=== PATIENT | female | born 1975 | race Caucasian/White ===

== ENCOUNTER 2019-07-17 12:50 | Emergency (ER) | payer MEDICAID, MEDICARE ==
[2019-07-17] MEDS ORDERED: Famotidine IV* 10 MG/ML 2 ML (20 mg) IV SLOW PU ONE (12:53)
[2019-07-17] MEDS ORDERED: methylPREDNISolone 125 MG* 2 ML VIAL IV ONE (12:53)
[2019-07-17 12:58] VITALS: BP 121/72
--- NOTE | 2019-07-17 13:18 | UC ---
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 HAS KNOWN ANAPHYLAXIS TO BEE STINGS. IMMEDIATELY USED HER EPIPEN AND TOOK 50 MG OF BENADRYL. STATES HER TONGUE FELT A LITTLE THICK INITIALLY BUT THIS HAS SINCE COMPLETELY RESOLVED. SHE DENIES ANY RESPIRATORY DISTRESS OR SHORTNESS OF BREATH. FEELS A LITTLE BIT OF TIGHTNESS IN HER CHEST. PATIENT IS QUITE ANXIOUS ON ARRIVAL. - History of Current Complaint Stated Complaint: BEE STING Time Seen by Provider: 07/17/19 12:52 Hx Obtained From: Patient Onset/Duration: Sudden Onset, Lasting Minutes, Still Present Severity Initially: Moderate Severity Currently: Moderate Pain Intensity: 3 Pain Scale Used: 0-10 Numeric Aggravating Factor(s): Nothing Alleviating Factor(s): Antihistamines, Epinephrine Associated Signs And Symptoms: Negative: Chest Pain, Cough Wheezing, Difficulty Breathing, Throat Tightening - Allergies/Home Medications Allergies/Adverse Reactions: Allergies Allergy/AdvReac Type Severity Reaction Status Date / Time acetaminophen [From Vicodin] Allergy Altered Verified 07/17/19 13:19 Mental Status bee venom protein (honey bee) Allergy Airway Verified 07/17/19 13:19 Obstruction cefuroxime [From Ceftin] Allergy Rash Verified 07/17/19 13:19 clindamycin Allergy Nausea Verified 07/17/19 13:19 duloxetine [From Cymbalta] Allergy See Comment Verified 07/17/19 13:19 erythromycin base Allergy Rash Verified 07/17/19 13:19 fentanyl Allergy Rash Verified 07/17/19 13:19 fluoxetine [From Prozac] Allergy Rash Verified 07/17/19 13:19 hydrocodone [From Vicodin] Allergy Altered Verified 07/17/19 13:19 Mental Status iodine Allergy Anaphylatic Verified 07/17/19 13:19 Shock latex Allergy Hives Verified 07/17/19 13:19 levothyroxine sodium Allergy Rash Verified 07/17/19 13:19 [From Synthroid] magnesium Allergy Unknown Verified 07/17/19 13:19 Reaction Details Penicillins Allergy Anaphylatic Verified 07/17/19 13:19 Shock shellfish derived Allergy Anaphylatic Verified 07/17/19 13:19 Shock Tree Nuts Allergy Unknown Verified 07/17/19 13:19 Reaction Details bromocryptide Allergy Unknown Uncoded 07/17/19 13:19 Reaction Details Home Medications: Home Medications Ascorbic Acid [Vitamin C] 500 mg PO DAILY 07/17/19 [History Confirmed 07/17/19] Cholecalciferol (Vitamin D3) [Vitamin D3] 5,000 unit PO DAILY 07/17/19 [History Confirmed 07/17/19] Citalopram TAB* [Celexa TAB*] 40 mg PO DAILY 07/17/19 [History Confirmed ] Cyclobenzaprine TAB* [Flexeril 10 MG TAB*] 10 mg PO DAILY 07/17/19 [History Confirmed 07/17/19] Lactobacillus Acidophilus [Acidophilus] 100 mg PO DAILY 07/17/19 [History Confirmed 07/17/19] Levocetirizine Dihydrochloride [Xyzal] 5 mg PO BEDTIME 07/17/19 [History Confirmed 07/17/19] Loratadine 10 mg PO DAILY 07/17/19 [History Confirmed 07/17/19] Omeprazole 20 mg PO DAILY 07/17/19 [History Confirmed 07/17/19] Pregabalin [Lyrica] 100 mg PO TID 07/17/19 [History Confirmed 07/17/19] Pyridoxine HCl (Vitamin B6) [Vitamin B-6] 100 mg PO DAILY 07/17/19 [History Confirmed 07/17/19] Thyroid,Pork [[place] Thyroid] 60 mg PO DAILY 07/17/19 [History Confirmed ] Ubidecarenone [Co Q-10] 200 mg PO DAILY 07/17/19 [History Confirmed 07/17/19] Vitamin B Complex CAP* [B Complex CAP*] 1 cap PO DAILY 07/17/19 [History Confirmed 07/17/19] Vitamin E Acetate [Vitamin E] 400 unit PO DAILY 07/17/19 [History Confirmed ] PMH/Surg Hx/FS Hx/Imm Hx Endocrine History: Hypothyroidism Respiratory History: Asthma - Surgical History Surgical History: Yes Surgery Procedure, Year, and Place: TOSILLECTOMY 1998 [facility] [place]. HYSTERECTOMY 1999 [facility] [place]. LAPARSOCOPY 1993 [facility] [place]. SEPTOPLASTY 2014 [facility]. LEFT BREAST DUCT EXC 2008 [facility]. C4/5, C5/6 ACDF 2006 [facility]. FINGER LT HAND TENDON REPAIR 2001 [facility] - Family History Known Family History: Positive: None - Social History Alcohol Use: Rare Substance Use Type: None Smoking Status (MU): Never Smoked Tobacco Review of Systems All Other Systems Reviewed And Are Negative: Yes Constitutional: Positive: Negative Skin: Positive: Other - BEE STING LEFT KNEE Respiratory: Positive: Negative Cardiovascular: Positive: Other - CHEST TIGHTNESS Gastrointestinal: Positive: Negative Psychological: Positive: Anxious Physical Exam Triage Information Reviewed: Yes Appearance: Well-Appearing, No Pain Distress, Well-Nourished Vital Signs: Initial Vital Signs Temp 98.9 F 07/17/19 12:55 Pulse 104 07/17/19 12:55 Resp 20 07/17/19 12:55 BP 121/72 07/17/19 12:55 Pulse Ox 98 07/17/19 12:55 Vital Signs Reviewed: Yes Eyes: Positive: Conjunctiva Clear ENT: Positive: Hearing grossly normal, Pharynx normal Neck: Positive: Supple Respiratory Exam: Normal Cardiovascular: Positive: Tachycardia Abdomen Description: Positive: Soft Musculoskeletal: Positive: No Edema Neurological: Positive: Alert Psychological: Positive: Age Appropriate Behavior Skin: Positive: Other - 3CMM AREA OF ERYTHEMA LEFT ANTERIOR KNEE AT BEE STING SITE. Negative: Rashes Re-Evaluation - Re-Evaluation First Eval Re-Evaluation Time: 14:15 - FEELS IMPROVED. READY FOR D/C Change: Improved Allergic Reaction Course/Dx - Course Course Of Treatment: PATIENT USED HER EPIPEN AND TOOK 50 MG OF BENADRYL PRIOR TO ARRIVAL. RECEIVED 125 MG SOLU-MEDROL AND 40 MG PEPCID HERE IN THE UC. SYMPTOMS WERE MONITORED FOR OVER AN HOUR. PATIENT FELT WELL AND READY FOR DISCHARGE AT THIS TIME. WE WILL REFILL HER EPIPEN AND CONTINUE PREDNISONE FOR 4 MORE DAYS. ADVISED TO CONTINUE ANTIHISTAMINES FOR THE NEXT FEW DAYS WELL. GO TO THE ER WITHOUT FAIL IF SYMPTOMS RECUR. - Differential Dx/Diagnosis Provider Diagnosis: Allergic reaction to bee sting Discharge ED - Sign-Out/Discharge Documenting (check all that apply): Patient Departure All imaging exams completed and their final reports reviewed: No Studies - Discharge Plan Condition: Stable Disposition: HOME Prescriptions: EPINEPHrine [Epipen 2-Benja] 0.3 mg IM ONCE PRN #1 benja PRN Reason: Allergy Symptoms predniSONE TAB* [Deltasone TAB*] 50 mg PO DAILY #4 tab Patient Education Materials: Insect Bite or Sting (ED), General Allergic Reaction (ED) Referrals: Raciel Bartholomew MD [Primary Care Provider] - If Needed Additional Instructions: YOU FELT IMPROVED AFTER 125 MG SOLU-MEDROL AND 40 MG OF PEPCID. TAKE PREDNISONE DAILY PRESCRIBED AVOID HEAT AND HOT WATER TAKE OTC ANTIHISTAMINE DAILY (CLARITIN (LORATADINE), ZYRTEC (CETIRIZINE) OR JENNIFER (FEXOFENADINE) IN THE MORNING, 25-50MG BENADRYL AT NIGHT) DO NOT SCRATCH KEEP COOL, CLEAN AND DRY USE TOPICAL STEROID SPARINGLY 2-3 TIMES DAILY NEEDED ON STING SITE. KEEP AWAY FROM MUCOUS MEMBRANES. GO TO THE ED WITHOUT FAIL IF YOU DEVELOP ANY RESPIRATORY INVOLVEMENT, TONGUE/ LIP SWELLING, FEVER, NAUSEA/VOMITING OR ANY OTHER CONCERNING SYMPTOMS. - Billing Disposition and Condition Condition: STABLE Disposition: Home
== END 2019-07-17 14:28 | disposition home or self-care (01) ==
LOC: UCEAST 12:50
DX: T63.441A Toxic effect of venom of bees, accidental (unintentional), initial encounter (principal); Y92.9 Unspecified place or not applicable; E03.9 Hypothyroidism, unspecified; J45.909 Unspecified asthma, uncomplicated; Z91.040 Latex allergy status; Z88.0 Allergy status to penicillin
CPT/HCPCS: 96361; 96372; 96374; 96375; 99202; 99283; G0463; J1200; J2930

== ENCOUNTER 2019-07-17 20:22 | Emergency (ER) | payer MEDICARE ==
--- OUTSIDE RECORDS SUMMARY | 2019-07-17 20:40 | XMS REPORT | Summary of Care ---
:[address] [facility] Address [address] [facility] [place] [address] Care Team Providers Name Role Phone Vin Leiva MD Primary Care Provider Reason for Visit Reason Comments Establish Care pt presents for re establishing care. Recently moved back to [facility]. Flu Vaccine pt would like to have influenza vaccine. Encounter Details Date Type Department Care Team Description 06/21/2019 Office Visit [facility] Raciel Bartholomew MD Hypothyroidism, unspecified type (Primary Dx); Practice [address] Syrinx of spinal cord (HCC); [address] [place] [address] Flu vaccine need; [place] [address] Depression with anxiety; [phone] Nummular eczema; Chronic urticaria Allergies Active Allergy Reactions Severity Noted Date Comments Bee Sting Anaphylaxis High 12/14/2007 Bromocriptine Rash 05/08/2008 Cefuroxime Anaphylaxis High 12/14/2007 Cleocin Anaphylaxis High 12/14/2007 Clindamycin Anaphylaxis 12/14/2007 Duloxetine Hcl Other 03/23/2015 Suicide ideation Erythromycin GI Reaction 12/17/2007 Fentanyl Citrate Hives 06/22/2011 FACIAL SWELLING 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/2010 Dizzy, vomiting diplopia and headache Gnp Iodine Anaphylaxis High 12/14/2007 Ct Dye Anaphylaxis High 01/29/2010 Latex Rash 06/04/2009 Magnesium Hives 12/20/2013 Nuts Respiratory Reaction 06/02/2014 Throat closes up /"coded in ambulance" Penicillins Anaphylaxis High 12/14/2007 Fluoxetine Hcl Anaphylaxis High 12/14/2007 Shellfish Allergy Anaphylaxis 06/02/2014 Pt states she can't breathe Levothyroxine Anaphylaxis High 12/14/2007 Hydrocodone-Acetaminophen Anaphylaxis High 12/14/2007 documented as of this encounter (statuses as of 06/22/2019) Medications Medication Sig Dispensed Refills Start End Date Status Date alpha-tocopherol Take 1 Cap by 30 Cap 0 Active (VITAMIN E) 400 UNIT mouth DAILY. 6 Oral Cap Pyridoxine HCl (B-6) Take 4 Caps by 30 Tab 0 Active 100 MG Oral Tab mouth DAILY. 6 Cyanocobalamin Take 1 Tab by 30 Tab 0 Active (VITAMIN B-12) 2500 mouth DAILY. 6 MCG Sublingual SL Tab Loratadine Take 1 Cap by 30 Cap 0 Active (CLARITIN) 10 MG mouth DAILY. 6 Oral Cap Lactobacillus Take 5 Caps by 300 Cap 0 Active (ACIDOPHILUS) 100 MG mouth TWICE 6 Oral Cap DAILY. Coenzyme Q10 200 MG Take 1 Cap by 30 Cap 0 Active Oral Cap mouth DAILY. 6 ASPIRIN 81 PO Take by mouth 0 Active DAILY. Vitamin D, take 1 capsule 4 Cap 0 Active Ergocalciferol, by mouth every 8 (ERGOCALCIFEROL) week 68390 units Oral Cap EPINEPHrine (EPIPEN 1 Each by 2 Each 0 Active 2-OLMAN) 0.3 MG/0.3ML Injection 8 Injection Solution route Auto-injector NEEDED (anaphylaxis for bee sting). Levocetirizine take 1 tablet 30 Tab 5 Active Dihydrochloride 5 MG by mouth at 9 Oral TabIndications: bedtime Allergic rhinitis thyroid (ARMOUR Take 1 Tab by 90 Tab 1 Active THYROID) 60 MG Oral mouth DAILY. 9 Tab citalopram (CELEXA) Take 1 Tab by 90 Tab 0 Active 40 MG Oral mouth DAILY. 9 TabIndications: Depression with anxiety cyclobenzaprine Take 1 Tab by 90 Tab 5 Active (FLEXERIL) 10 MG mouth THREE 9 Oral Tab TIMES DAILY NEEDED (back pain/leg pain). mometasone (ELOCON) Apply to rash 50 g 3 Active 0.1 % Apply on arms and 9 externally legs CreamIndications: Nummular eczema, Chronic urticaria Omeprazole delayed Take 20 mg by 30 Cap 5 Active rel cap 20 MG Oral mouth DAILY. 9 CAPSULE DELAYED RELEASE pregabalin (LYRICA) Take 1 Cap by 90 Cap 5 Active 100 MG Oral mouth THREE 9 CapIndications: TIMES DAILY. Depression with Max Daily anxiety Amount: 300 mg. Omeprazole delayed Take 20 mg by 30 Cap 5 06/21/20 Discontinued rel cap 20 MG Oral mouth DAILY. 6 19 (Reorder) CAPSULE DELAYED RELEASE mometasone (ELOCON) Apply to rash 50 g 3 06/21/20 Discontinued 0.1 % Apply on arms and 7 19 (Reorder) externally legs CreamIndications: Nummular eczema, Chronic urticaria naproxen (NAPROSYN) Take 1 Tab by 60 Tab 0 06/21/20 Discontinued 250 MG Oral Tab mouth TWICE 8 19 DAILY. ARMOUR THYROID 60 MG take 1 tablet 90 Tab 1 06/21/20 Discontinued Oral Tab by mouth once 9 19 (Reorder) daily citalopram (CELEXA) take 1 tablet 30 Tab 0 06/21/20 Discontinued 40 MG Oral by mouth once 9 19 (Duplicate TabIndications: daily Order) Depression with anxiety pregabalin (LYRICA) Take 1 Cap by 90 Cap 0 06/21/20 Discontinued 100 MG Oral mouth THREE 9 19 (Reorder) CapIndications: TIMES DAILY. Depression with Max Daily anxiety Amount: 300 mg. cyclobenzaprine take 1 tablet 90 Tab 1 06/21/20 Discontinued (FLEXERIL) 10 MG by mouth three 9 19 (Reorder) Oral Tab times a day if needed citalopram (CELEXA) Take 1 Tab by 90 Tab 0 06/21/20 Discontinued 40 MG Oral mouth DAILY. 9 19 (Reorder) TabIndications: Depression with anxiety documented as of this encounter (statuses as of 06/22/2019) Active Problems Problem Noted Date Acquired hypothyroidism 09/26/2017 Dyslipidemia 09/26/2017 Depression with anxiety 09/26/2017 Nummular eczema 09/26/2017 Pap smear of cervix satisfactory but lacking transformation zone 10/29/2016 Overview: Plan to repeat in one year. Due 10/06/2017 Fibromyalgia 09/22/2016 DANE on CPAP 09/22/2016 Irritable colon 09/22/2016 Chronic rhinitis 01/08/2015 Deviated nasal septum 11/04/2014 Hypertrophy of nasal turbinates 11/04/2014 LPRD (laryngopharyngeal reflux disease) 11/04/2014 Chronic urticaria 01/24/2014 BMI 31.0-31.9,adult 04/15/2011 Overview: This patient's BMI has been calculated and is above average, and BMI management plan is completed. General patient education discussion including: weight loss link to reduction of risk factors for car diac and other diseases, importance of long-term maintenance treatment in weight loss and is managed by self. Does yoga and cutting fast food. More fruit and vegetables. CVA (cerebral infarction) 06/12/2010 Unspecified urinary incontinence 06/12/2010 Ovarian cyst 06/12/2010 Syringomyelia 04/03/2010 DANE (obstructive sleep apnea) 04/03/2010 Overview: Not on treatment IBS (irritable bowel syndrome) 04/03/2010 Hematuria, microscopic 04/03/2010 B12 Defiencies 12/14/2007 Migraines Scotoma 12/14/2007 PONV (postoperative nausea and vomiting) documented as of this encounter (statuses as of 06/22/2019) Resolved Problems Problem Noted Date Resolved Date Allergy 12/14/2007 01/24/2014 Overview: ABAPHYLAXIS TO MULTIPLE MEDICINES AND PEANUTS Lump or mass in breast 10/19/2007 06/12/2010 documented as of this encounter (statuses as of 06/22/2019) Immunizations Name Administration Dates Next Due Influenza (IM) Preservative Free 06/21/2019, 07/26/2018 Influenza Virus Vaccine Pres Free 6-35 Months 08/11/2014 TDAP Vaccine 03/13/2012 documented as of this encounter Social History Tobacco Use Types Packs/Day Years Used Date Never Smoker Smokeless Tobacco: Never Used Alcohol Use Drinks/Week oz/Week Comments No Sex Assigned at Date Recorded Not on file Job Start Date Occupation Industry Not on file Not on file Not on file Travel History Travel Start Travel End No recent travel history available. documented as of this encounter Last Filed Vital Signs Vital Sign Reading Time Taken Comments Blood Pressure 118/78 06/21/2019 8:25 AM EDT Pulse 75 06/21/2019 8:25 AM EDT Temperature - - Respiratory Rate - - Oxygen Saturation 99% 06/21/2019 8:25 AM EDT Inhaled Oxygen Concentration - - Weight 96.2 kg (212 lb) 06/21/2019 8:25 AM EDT Height 162.6 cm (5' 4") 06/21/2019 8:25 AM EDT Body Mass Index 36.39 06/21/2019 8:25 AM EDT documented in this encounter Progress Notes Raciel Bartholomew MD - 06/21/2019 8:20 AM EDT PATIENT: Samia Love : 1975 DATE OF SERVICE: 06/21/2019 CHIEF COMPLAINT: Chief Complaint Patient presents with Establish Care pt presents for re establishing care. Recently moved back to [facility]. Flu Vaccine pt would like to have influenza vaccine. Subjective HISTORY OF PRESENT ILLNESS: Samia Love is a 44-y.o. female. Last seen by me 2015. Moved to [place] and seeing Tobar there. Her dad , sister moved away soshe is back in [facility] and to re establish . She needs new Rx to local pharmacy to start fresh. Her PMH and her meds not change much . Reviewed and updated in the chart She does exercise by walking the dog. She still on disability for fibromyalgia. lyrica has been a great med for her, takes flexeril 2-3 xa day not really take aleve She not wear cpap since dentures Migraines better and mood ok She not need more paps Couple years ago neurology felt she had a problem with her cerebral vascular system But the findings due to the hardware in her neck . She is off the ASA Uses 2 antihistamines for her itch , has seen allergy Still picks at her skin using sterid cream for itch hot spots She cant miss a PPI dose Uses B6 for leg cramps Past Medical History: Diagnosis Date Hypothyroidism 12/14/2007 autoimmune Allergic to latex Asthma Autoimmune urticaria B12 Defiencies 12/14/2007 Carpal tunnel syndrome 2011 right mild 2012 surgery Chronic urticaria 01/24/2014 Depression with anxiety 09/26/2017 Dyslipidemia Eczema numular Fibromyalgia 09/22/2016 GERD (gastroesophageal reflux disease) GI bleed 03/02/2016 Admitted to hospital for 2 days. negative FALK Hearing problem hearing loss right ear Hematuria, microscopic 04/03/2010 History of breast surgery left easton bx History of hysterectomy no more paps IBS (irritable bowel syndrome) Irritable colon 09/22/2016 Lump or mass in breast 10/19/2007 Migraines Scotoma 12/14/2007 Nummular eczema 09/26/2017 DANE on CPAP 09/22/2016 Ovarian cyst 06/12/2010 Postmenopausal Sinusitis, chronic Sleep apnea not wear mask due to sinus Stroke (HCC) left temporal lobe 2001 Syringomyelia (HCC) c6-7 Urinary incontinence Family History Problem Relation Age of Onset Asthma Mother Allergic Rhinitis Mother Allergic Rhinitis Sister Diabetes Other FAMILY HISTORY Cancer Other SKIN CANCER Cancer Father bladder Lung Cancer Father Breast Cancer Maternal Aunt 55 ovarian, her daughter had breast cancer Anesth Problems No family history Arthritis No family history Clotting Disorder No family history Heart Disease No family history Hypertension No family history Kidney Disease No family history Thyroid Disease No family history Current Outpatient Medications Medication Sig alpha-tocopherol (VITAMIN E) 400 UNIT Oral Cap Take 1 Cap by mouth DAILY. ASPIRIN 81 PO Take by mouth DAILY. citalopram (CELEXA) 40 MG Oral Tab Take 1 Tab by mouth DAILY. Coenzyme Q10 200 MG Oral Cap Take 1 Cap by mouth DAILY. Cyanocobalamin (VITAMIN B-12) 2500 MCG Sublingual SL Tab Take 1 Tab by mouth DAILY. cyclobenzaprine (FLEXERIL) 10 MG Oral Tab Take 1 Tab by mouth THREE TIMES DAILY NEEDED (back pain/leg pain). EPINEPHrine (EPIPEN 2-OLMAN) 0.3 MG/0.3ML Injection Solution Auto-injector 1 Each by Injection route NEEDED (anaphylaxis for bee sting). Lactobacillus (ACIDOPHILUS) 100 MG Oral Cap Take 5 Caps by mouth TWICE DAILY. Levocetirizine Dihydrochloride 5 MG Oral Tab take 1 tablet by mouth at bedtime Loratadine (CLARITIN) 10 MG Oral Cap Take 1 Cap by mouth DAILY. mometasone (ELOCON) 0.1 % Apply externally Cream Apply to rash on arms and legs Omeprazole delayed rel cap 20 MG Oral CAPSULE DELAYED RELEASE Take 20 mg by mouth DAILY. pregabalin (LYRICA) 100 MG Oral Cap Take 1 Cap by mouth THREE TIMES DAILY. Max Daily Amount: 300 mg. Pyridoxine HCl (B-6) 100 MG Oral Tab Take 4 Caps by mouth DAILY. thyroid (ARMOUR THYROID) 60 MG Oral Tab Take 1 Tab by mouth DAILY. Vitamin D, Ergocalciferol, (ERGOCALCIFEROL) 67938 units Oral Cap take 1 capsule by mouth every week No current facility-administered medications for this visit. 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 Dizzy, vomiting diplopia and headache Latex Rash Magnesium Hives Peanuts [Nuts] Respiratory Reaction Throat closes up /"coded in ambulance" Shellfish Allergy Anaphylaxis Pt states she can't breathe Social History Socioeconomic History Marital status: Single Spouse name: Not on file Number of children: Not on file Years of education: Not on file Highest education level: Not on file Occupational History Not on file Social Needs Financial resource strain: Not on file Food insecurity: Worry: Not on file Inability: Not on file Transportation needs: Medical: Not on file Non-medical: Not on file Tobacco Use Smoking status: Never Smoker Smokeless tobacco: Never Used Substance and Sexual Activity Alcohol use: No Drug use: No Sexual activity: Yes Partners: Male Lifestyle Physical activity: Days per week: Not on file Minutes per session: Not on file Stress: Not on file Relationships Social connections: Talks on phone: Not on file Gets together: Not on file Attends zoroastrianism service: Not on file Active member of club or organization: Not on file Attends meetings of clubs or organizations: Not on file Relationship status: Not on file Intimate partner violence: Fear of current or ex partner: Not on file Emotionally abused: Not on file Physically abused: Not on file Forced sexual activity: Not on file Other Topics Concern Back Care Not Asked Bike Helmet Not Asked Blood Transfusions Not Asked Caffeine Concern Not Asked Comment: approx 32 oz/day (coffee and soda) Exercise Not Asked Hobby Hazards Not Asked International Travel Not Asked Service Not Asked Occupational Exposure Not Asked Seat Belt Not Asked Self-Exams Not Asked Sleep Concern Not Asked Special Diet Not Asked Stress Concern Not Asked Weight Concern Not Asked Social History Narrative Lives alone in [place]. Mother lives across the street. Dog at home. On disability for fibromyalgia. REVIEW OF SYSTEMS: ROS Objective PHYSICAL EXAM: VITALS: BP 118/78 (BP Location: Right arm, Patient Position: Sitting) | Pulse 75 | Ht 5' 4" (1.626 m) | Wt 212 lb (96.2 kg) | SpO2 99% | BMI 36.39 kg/m Body mass index is 36.39 kg/m. Physical Exam Constitutional: No distress. HENT: Mouth/Throat: Oropharynx is clear and moist. Eyes: Conj slight pale Neck: No thyromegaly present. Cardiovascular: Normal rate, regular rhythm and normal heart sounds. Pulmonary/Chest: Effort normal and breath sounds normal. No respiratory distress. Abdominal: Soft. She exhibits no mass. There is no tenderness. Musculoskeletal: She exhibits no edema. Skin: Spots on arms consistent with neurodermatitis Psychiatric: Dress and hygiene good Good eye contact Thoughts and speech minimal pressure Affect Appropriate Mood normal Vitals reviewed. ASSESSMENT / IMPRESSION: ICD-9-CM ICD-10-CM 1. Hypothyroidism, unspecified type due for labs 244.9 E03.9 THYROID STIMULATING HORMONE 2. Syrinx of spinal cord (HCC) 336.0 G95.0 3. Flu vaccine need V04.81 Z23 MD FLU VACCINE PRES FREE 3YRS+ ADULT (DX Z23) 4. Depression with anxiety refill celexa , appears stable 300.4 F41.8 citalopram (CELEXA) 40 MG Oral Tab pregabalin (LYRICA) 100 MG Oral Cap 5. Nummular eczema 692.9 L30.0 mometasone (ELOCON) 0.1 % Apply externally Cream 6. Chronic urticaria agree with 2 antihistamines a day Am PM 708.8 L50.8 mometasone (ELOCON) 0.1 % Apply externally Cream Plan Author: Raciel Bartholomew MD 06/22/2019 07:09 documented in this encounter Plan of Treatment Date Type Specialty Care Team Description 07/05/2019 Lab Internal Medicine 05/11/2020 Ancillary Procedure Radiology 05/18/2020 Office Visit General Surgery Jason Duff MD [address] [place] [address] [phone] Name Type Priority Associated Diagnoses Order Schedule THYROID STIMULATING Lab Routine Hypothyroidism, Expected: 06/21/2019 HORMONE unspecified type (Approximate), Expires: 06/21/2020 Health Maintenance Due Date Last Done Comments MEDICARE ANNUAL WELLNESS 1975 VISIT DIABETES SCREENING 09/28/2018 09/28/2017, 09/26/2016, 05/17/2016, Additional history exists LIPID DISORDER SCREENING 09/28/2018 09/28/2017, 09/26/2016, 01/10/2013, Additional history exists DEPRESSION SCREENING 08/22/2019 08/22/2018, 08/22/2018 INFLUENZA VACCINE Completed 06/21/2019, 07/26/2018 HPV IMMUNIZATION SERIES Aged Out No longer eligible based on patient's age to complete this topic MENINGOCOCCAL VACCINE IMM Aged Out No longer eligible based on patient's age to complete this topic PNEUMOCOCCAL 0-64 YRS Aged Out No longer eligible based on patient's age to complete this topic documented as of this encounter Goals Goal Patient Goal Associated Recent Patient-Stated? Author Type Problems Progress Depression Depression 16 No clementina Bartholomew (PHQ-9) (08/22/2018 MD Raciel total score < 5 1:56 PM EDT) Note: This is an individualized treatment (depression) goal for Samia Love: Displayed above is your goal for a depression screening (PHQ-9) score that would indicate good control of your depression. Keep a regular sleep schedule Lifestyle No Raciel Bartholomew MD Note: This is an individualized lifestyle goal for Samia Love: Please maintain a regular sleep schedule. This may help with some symptoms of depression. Take all prescribed medications as directed Self-management No Raciel Bartholomew MD Note: This is an individualized self-management goal for Samia Love: Please take all prescribed medications as directed. 1. Do not skip doses. If you cannot afford your medications, talk with your doctor. 2. Use a pill reminder system such as a pill box if needed. Your pharmacist can help you with this. 3. Contact your Pharmacy 5 days before your medication runs out. If you cannot take your medications for any reasons, talk with your doctor. 4. Please bring all of your medication bottles and inhalers (or a list of all your medications/inhalers) with you to every visit. Potential barriers to meeting all of your care plan goals will continue to be addressed on an ongoing basis. documented as of this encounter Results Not on filedocumented in this encounter Visit Diagnoses Diagnosis Hypothyroidism, unspecified type - Primary Syrinx of spinal cord (HCC) Syringomyelia and syringobulbia Flu vaccine need Need for prophylactic vaccination and inoculation against influenza Depression with anxiety Dysthymic disorder Nummular eczema Contact dermatitis and other eczema, due to unspecified cause Chronic urticaria Other specified urticaria documented in this encounter Guarantor Name Account Type Relation to Date of Phone Billing Address Patient Samia Love Personal/Famil 1975 [address] (Home) [place], [place] [phone] (Work) documented as of this encounter
--- OUTSIDE RECORDS SUMMARY | 2019-07-17 20:40 | XMS REPORT ---
:1975 Author Name Ana Luisa Metzger Address [address] [place] [address] Care Team Providers Name Role Phone Ana Luisa Metzger Unavailable Unavailable PROBLEMS Type Condition ICD9-CM Code [id number] Code Onset Condition SNOMED Code Dates Status Problem Cystocele, N81.10 Active 103729640 unspecified Problem Pelvic and R10.2 Active 692968376 perineal pain Problem Unspecified R32 Active 104804975 urinary incontinence ALLERGIES No Information ENCOUNTERS Encounter Location Date Diagnosis [facility] Apr, Pelvic and perineal pain [facility] R10.2 [place] [id number] [facility] [address] Apr, Pelvic and perineal pain [facility] R10.2 [place] [id number] [facility] 103 Apr, OBGYN [place], [place] [id number] [facility] 103 Apr, Pelvic and perineal pain OBGYN [facility], R10.2 [place] [id number] [facility] [address] Apr, OBGYN [place], [place] [id number] [facility] 103 Apr, Encounter for OBGYN [facility], gynecological examination [place] [id number] (general) (routine) with abnormal findings Z01.411 ; Family history of malignant neoplasm of breast Z80.3 ; Pelvic and perineal pain R10.2 ; Unspecified urinary incontinence R32 and Cystocele, unspecified N81.10 IMMUNIZATIONS No Known Immunizations SOCIAL HISTORY Never Assessed REASON FOR REFERRAL FUNCTIONAL STATUS PLAN OF CARE VITAL SIGNS MEDICATIONS No Known Medications PROCEDURES No Known procedures RESULTS No Results REASON FOR VISIT PT appointment Insurance Providers [facility] Patient Patient Patient Patient Patient Subscriber Subscriber Subscriber Group Insurance Plan Plan Plan Plan ID Relationship Address Phone Name Date of ID Name Date of No Type Insurance Insurance Insurance Coverage to Subscriber Address Phone Name Dates Medicare [phone] Medicare self Samia [id number] [facility] [id number] MEDICAL (GENERAL) HISTORY Type Description Date Medical History GERD Medical History hypothyroidism Medical History vitamin B12 deficiency Medical History vitamin D deficiency Medical History anxiety Medical History OCD Medical History fibromyalgia Medical History allergies Medical History lupus Medical History 12/2000 - mild stroke - left temporal bone Medical History 12/2002 - broken left wrist/ thumb with torn ligament Medical History 12/2004 - broken left navicular Medical History 03/2005 - 3 broken toes, RT foot Medical History hernaited cervical discs Medical History 10/2007 - dislocated left knee Medical History 06/2013 - broken RT foot Surgical History laparoscopy adhesions 11/1993 Surgical History tonsillectomy 04/1999 Surgical History hysterectomy 03/2000 Surgical History tendon repair - left wrist and index 02/2002 Surgical History tenalysis - adhsions left wrist 06/2002 Surgical History syringomyelia C6/7, 7/8 06/2005 Surgical History spinal fusion C4/5, C5/6 11/2005 Surgical History LT breast ductal excision 05/2009 Surgical History septoplasty 11/2014 Surgical History RT carpal tunnel release 11/12/15 Surgical History extraction of 9 teeth 01/2016 Surgical History colonoscopy 05/05/16 Hospitalization History see above Hospitalization History childbirth 02/1995 Hospitalization History severe allergic reaction - peanuts 03/2004 Hospitalization History GI bleed 03/02/16 - 03/04/16 Hospitalization History sepsis from dog bite to face 11/2016
[2019-07-17] MEDS ORDERED: Famotidine IV* 10 MG/ML 2 ML (20 mg) IV ONE (20:51)
[2019-07-17] MEDS ORDERED: diPHENhydraMINE IV* 50 MG/ML 1 ml VIAL (BENADRYL) IV ONE (20:51)
[2019-07-17] MEDS ORDERED: NS 0.9% 1000 ML** 1,000 ML IV ONE (20:51)
[2019-07-17] MEDS ORDERED: methylPREDNISolone 125 MG* 2 ML VIAL IV ONE (20:54)
--- NOTE | 2019-07-17 22:44 | ED ---
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 The first bee sting occurred at 12:00 on 07/17/2019 after which the pt had SOB and felt her throat tighten. Patient subsequently took 50 mg Bendaryl and used her epi- pen. She went to urgent care and received Solu-Medrol and Pepcid. She was discharged to home. This evening, 07/17/2019, she reports that she had received a second bee sting. Patient reports that she felt SOB and throat-tightening once more. She took another round of epinephrine and Benadryl. At present, patient states that she is still feeling SOB. In room, patient has o2 sat of 100 on RA. She denies fever or improvement of Sx when sitting up. Allergies reviewed. - History of Current Complaint Chief Complaint: EDAllergicReaction Time Seen by Provider: 07/17/19 20:51 Hx Obtained From: Patient Onset/Duration: Sudden Onset, Started hours ago, Still Present Timing: Lasting Hours Severity Initially: Moderate Severity Currently: Moderate Pain Intensity: 4 Pain Scale Used: 0-10 Numeric Location: Diffuse Aggravating Factor(s): Nothing Alleviating Factor(s): Epinephrine Associated Signs And Symptoms: Positive: Difficulty Breathing, Throat Tightening - Related Hx Possible Reaction To: Insect - Bee - Allergies/Home Medications Allergies/Adverse Reactions: Allergies Allergy/AdvReac Type Severity Reaction Status Date / Time acetaminophen [From Vicodin] Allergy Altered Verified 07/17/19 13:19 Mental Status bee venom protein (honey bee) Allergy Airway Verified 07/17/19 13:19 Obstruction cefuroxime [From Ceftin] Allergy Rash Verified 07/17/19 13:19 clindamycin Allergy Nausea Verified 07/17/19 13:19 duloxetine [From Cymbalta] Allergy See Comment Verified 07/17/19 13:19 erythromycin base Allergy Rash Verified 07/17/19 13:19 fentanyl Allergy Rash Verified 07/17/19 13:19 fluoxetine [From Prozac] Allergy Rash Verified 07/17/19 13:19 hydrocodone [From Vicodin] Allergy Altered Verified 07/17/19 13:19 Mental Status iodine Allergy Anaphylatic Verified 07/17/19 13:19 Shock latex Allergy Hives Verified 07/17/19 13:19 levothyroxine sodium Allergy Rash Verified 07/17/19 13:19 [From Synthroid] magnesium Allergy Unknown Verified 07/17/19 13:19 Reaction Details Penicillins Allergy Anaphylatic Verified 07/17/19 13:19 Shock shellfish derived Allergy Anaphylatic Verified 07/17/19 13:19 Shock Tree Nuts Allergy Unknown Verified 07/17/19 13:19 Reaction Details bromocryptide Allergy Unknown Uncoded 07/17/19 13:19 Reaction Details Home Medications: Home Medications Cholecalciferol TAB* [Vitamin D TAB*] 50,000 unit PO WEEKLY 07/17/19 [History Confirmed 07/17/19] Cyanocobalamin (Vitamin B-12) [Vitamin B12] 2,500 mcg PO DAILY 07/17/19 [ History Confirmed 07/17/19] PMH/Surg Hx/FS Hx/Imm Hx Previously Healthy: Yes Endocrine/Hematology History: Reports: Hx Thyroid Disease - HYPO, Hx Anemia - HX OF Respiratory History: Reports: Hx Asthma - SEASONAL, Hx Sleep Apnea GI History: Reports: Hx Gastroesophageal Reflux Disease History: Reports: Other Problems/Disorders - PARTIALLY "PROLAPSED" BLADDER PER PT Musculoskeletal History: Reports: Hx Tendonitis - HX OF, Other Musculoskeletal History Sensory History: Reports: Hx Contacts or Glasses - GLASSES Denies: Hx Hearing Aid Opthamlomology History: Reports: Hx Contacts or Glasses - GLASSES Neurological History: Reports: Other Neuro Impairments/Disorders - FIBROMYALGIA , SYRINYX C6/7 Psychiatric History: Reports: Hx Anxiety, Hx Depression - Surgical History Surgical History: Yes Surgery Procedure, Year, and Place: TOSILLECTOMY 1998 [facility] [place]. [place]STERECTOMY 1999 [facility] [place] LAP[place]OCOPY [place] [facility] [place]. SEPTOPLASTY 2014 [facility]. LEFT BREAST DUCT EXC 2009 [facility]. C4/5, C5/6 ACDF 2006 [facility]. FINGER LT HAND TENDON REPAIR 2001 [facility] Hx Anesthesia Reactions: No Infectious Disease History: No Infectious Disease History: Denies: Traveled Outside the [place] in Last 30 Days - Family History Known Family History: Negative: Diabetes - Social History Alcohol Use: Rare Hx Substance Use: No Substance Use Type: Reports: None Substance Use Comment - Amount & Last Used: None Smoking Status (MU): Never Smoked Tobacco Review of Systems - ROS Summary Review of Systems Summary: Cholecalciferol TAB* [Vitamin D TAB*] 50,000 unit PO WEEKLY 07/17/19 [History Confirmed 07/17/19] Cyanocobalamin (Vitamin B-12) [Vitamin B12] 2,500 mcg PO DAILY 07/17/19 [ History Confirmed 07/17/19] Negative: Fever ENT: Other - Throat tightening Positive: Shortness Of Breath All Other Systems Reviewed And Are Negative: Yes Physical Exam - Summary Physical Exam Summary: General: Well-developed, Obese Female. Moderately anxious appearing. HEENT: Normocephalic, Atraumatic. Eyes: Conjuctiva normal, PERRL. swelling in right upper eyelid. Ears: TMs within normal limits. Nares: (-) discharge, (-) erythema. Oropharynx: Clear, mucous membranes moist, (-) exudates. Neck: Soft, FROM, (-) lymphadenopathy, (-) thyromegaly, (-) JVD. Cardiovascular: Normal sinus rhythm, (-) murmur. Lungs: Clear to auscultation bilaterally (-) wheezes, (-) rales, (-) rhonchi. Abdomen: Soft, non-tender, non-distended, (-) organomegaly, normal bowel sounds. Back: (-) CVA tenderness Extremities: No edema. Skin: Warm, dry, (-) rash. Neuro: Alert and oriented x3, no focal deficits. Psychiatric: Mood normal, affect normal. Triage Information Reviewed: Yes Vital Signs On Initial Exam: Initial Vitals Temp Pulse Resp BP Pulse Ox 98.1 F 114 18 106/83 96 07/17/19 20:22 07/17/19 20:22 07/17/19 20:22 07/17/19 20:22 07/17/19 20:22 Vital Signs Reviewed: Yes Diagnostics - Vital Signs Vital Signs Temp Pulse Resp BP Pulse Ox 07/17/19 22:00 104 23 96 07/17/19 21:00 111 20 99 07/17/19 20:58 108 17 121/84 100 07/17/19 20:56 115 98 07/17/19 20:22 98.1 F 114 18 106/83 96 - Laboratory Lab Statement: Any lab studies that have been ordered have been reviewed, and results considered in the medical decision making process. Re-Evaluation - Re-Evaluation 1st re-eval Re-Evaluation Time: 22:35 Change: Improved Comment: At 2135, pt is feeling much better and ready for discharge. 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 The first bee sting occurred at 12:00 on 07/17/2019 after which the pt had SOB and felt her throat tighten. Patient subsequently took 50 mg Bendaryl and used her epi-pen. She went to urgent care and received Solu-Medrol and Pepcid. She was discharged to home. This evening, 07/17/2019, she reports that she had received a second bee sting. Patient reports that she felt SOB and throat-tightening once more. She took another round of epinephrine and Benadryl. At present, patient states that she is still feeling SOB. In room, patient has o2 sat of 100 on RA. She denies fever or improvement of Sx when sitting up. Allergies reviewed. On exam, pt had swelling in the right upper eyelid. During ED course, patient received 1 L NS, solu-medrol 125 mg IV, Pepcid 40 mg IV and Benadryl 50 mg IV. I re-evaluated the pt at 22:35 who felt much better after medications. Pt with be discharged home on 07/17/2019 with a diagnosis of allergic reaction. - Diagnoses Provider Diagnoses: Allergic reaction Discharge ED - Sign-Out/Discharge Documenting (check all that apply): Patient Departure - discharge Patient Received Moderate/Deep Sedation with Procedure: No - Discharge Plan Condition: Stable Disposition: HOME Patient Education Materials: General Allergic Reaction (ED) Referrals: Raciel Bartholomew MD [Primary Care Provider] - Additional Instructions: Please follow up with primary care physician within 3 days. Please return to ED for an new or worsening symptoms. - Billing Disposition and Condition Condition: STABLE Disposition: Home - Attestation Statements Document Initiated by Scribe: Yes Documenting Scribe: LARA ARGUELLO Provider For Whom Rosa is Documenting (Include Credential): CUCA SWEENEY MD Scribe Attestation: LARA Smallwood, scribed for CUCA SWEENEY MD on 07/18/19 at 0224. Scribe Documentation Reviewed: Yes Provider Attestation: The documentation as recorded by the LARA sanchez accurately reflects the service I personally performed and the decisions made by me, CUCA SWEENEY MD Status of Scribe Document: Viewed
[2019-07-17 23:07] VITALS: BP 133/74
== END 2019-07-17 23:00 | disposition home or self-care (01) ==
LOC: ED 20:22
DX: T63.441A Toxic effect of venom of bees, accidental (unintentional), initial encounter (principal); Y92.9 Unspecified place or not applicable; F41.9 Anxiety disorder, unspecified; F32.9 Major depressive disorder, single episode, unspecified; Z88.0 Allergy status to penicillin; E03.9 Hypothyroidism, unspecified
CPT/HCPCS: 96361; 96374; 96375; 99283; J1200; J2930

== ENCOUNTER 2019-10-30 13:57 | Emergency (ER) | payer MEDICARE ==
[2019-10-30 14:14] VITALS: BP 126/93
--- NOTE | 2019-10-30 15:46 | UC ---
FLU HPI - HPI Summary HPI Summary: 5 DAYS OF FLULIKE SYMPTOMS INCLUDING COUGH, CONGESTION, SORE THROAT, HEADACHE, BODY ACHES AND SOME ACTIVE FEVER. FATIGUED. UP-TO-DATE FLU SHOT. - History of Current Complaint Chief Complaint: UCGeneralIllness Stated Complaint: COUGH HEADACHE SINUS ISSUE Time Seen by Provider: 10/30/19 14:42 Hx Obtained From: Patient Onset/Duration: Gradual Onset, Lasting Days, Still Present Severity Currently: Moderate Severity Initially: Moderate Pain Intensity: 5 Pain Scale Used: 0-10 Numeric Associated Signs & Symptoms: Positive: Fever - subjective, Myalgia, Cough, Sore Throat, Nasal Congestion, Headache - Allergy/Home Medications Allergies/Adverse Reactions: Allergies Allergy/AdvReac Type Severity Reaction Status Date / Time acetaminophen [From Vicodin] Allergy Altered Verified 07/17/19 13:19 Mental Status bee venom protein (honey bee) Allergy Airway Verified 07/17/19 13:19 Obstruction cefuroxime [From Ceftin] Allergy Rash Verified 07/17/19 13:19 clindamycin Allergy Nausea Verified 07/17/19 13:19 duloxetine [From Cymbalta] Allergy See Comment Verified 07/17/19 13:19 erythromycin base Allergy Rash Verified 07/17/19 13:19 fentanyl Allergy Rash Verified 10/30/19 14:14 fluoxetine [From Prozac] Allergy Rash Verified 10/30/19 14:14 hydrocodone [From Vicodin] Allergy Altered Verified 10/30/19 14:14 Mental Status iodine Allergy Anaphylatic Verified 10/30/19 14:14 Shock latex Allergy Hives Verified 10/30/19 14:14 levothyroxine sodium Allergy Rash Verified 10/30/19 14:14 [From Synthroid] magnesium Allergy Unknown Verified 10/30/19 14:14 Reaction Details Penicillins Allergy Anaphylatic Verified 10/30/19 14:14 Shock shellfish derived Allergy Anaphylatic Verified 10/30/19 14:14 Shock Tree Nuts Allergy Unknown Verified 10/30/19 14:14 Reaction Details bromocryptide Allergy Unknown Uncoded 10/30/19 14:14 Reaction Details PMH/Surg Hx/FS Hx/Imm Hx Endocrine History: Hypothyroidism Respiratory History: Asthma - allergies - Surgical History Surgical History: Yes Surgery Procedure, Year, and Place: TOSILLECTOMY 1998 [facility] [place]. HYSTERECTOMY 1999 [facility] [place]. LAPARSOCOPY 1993 [facility] [place]. SEPTOPLASTY 2015 [facility]. LEFT BREAST DUCT EXC 2008 [facility]. C4/5, C5/6 ACDF 2005 [facility]. FINGER LT HAND TENDON REPAIR 2001 [place] - Family History Known Family History: Positive: None Negative: Diabetes - Social History Alcohol Use: Rare Substance Use Type: None Substance Use Comment - Amount & Last Used: None Smoking Status (MU): Never Smoked Tobacco Review of Systems All Other Systems Reviewed And Are Negative: Yes Constitutional: Positive: Fever - SUBJECTIVE, Chills, Fatigue ENT: Positive: Sore Throat, Nasal Discharge Respiratory: Positive: Cough Cardiovascular: Positive: Negative Gastrointestinal: Positive: Negative Genitourinary: Positive: Negative Musculoskeletal: Positive: Arthralgia Neurological: Positive: Headache Physical Exam Triage Information Reviewed: Yes Appearance: Well-Appearing, No Pain Distress, Well-Nourished Vital Signs: Initial Vital Signs Temp 98.7 F 10/30/19 14:08 Pulse 111 10/30/19 14:08 Resp 18 10/30/19 14:08 BP 126/93 10/30/19 14:08 Pulse Ox 100 10/30/19 14:08 Vital Signs Reviewed: Yes Eyes: Positive: Conjunctiva Clear ENT: Positive: Hearing grossly normal, Pharynx normal, TMs normal Neck: Positive: Supple, Nontender, No Lymphadenopathy Respiratory Exam: Normal Cardiovascular: Positive: Tachycardia Abdomen Description: Positive: Soft Musculoskeletal: Positive: No Edema Neurological: Positive: Alert Psychological: Positive: Age Appropriate Behavior Skin: Negative: Rashes Flu Course/Dx - Course Course Of Treatment: PATIENT IS 5 DAYS INTO A FLU-LIKE ILLNESS. DECLINES FLU TESTING TODAY WHICH I THINK IS REASONABLE IT IS TOO LATE FOR HER TO HAVE ANY BENEFIT FROM TAMIFLU. SYMPTOMS WILL LIKELY RESOLVE ON THEIR OWN WITH TIME. ADVISED REST, HYDRATION , OTC MEDS NEEDED. WILL GIVE TESSALON FOR COUGH AND HAVE ALSO GIVEN A SHORT COURSE OF PREDNISONE TO HELP WITH AIRWAY INFLAMMATION. FOLLOW-UP IF NOT IMPROVING WITH THIS TREATMENT OVER THE NEXT WEEK OR SO. - Differential Dx/Diagnosis Provider Diagnosis: Influenza-like illness Discharge ED - Sign-Out/Discharge Documenting (check all that apply): Patient Departure All imaging exams completed and their final reports reviewed: No Studies - Discharge Plan Condition: Stable Disposition: HOME Prescriptions: Benzonatate CAP* [Tessalon CAP*] 1 - 2 cap PO TID PRN #30 cap PRN Reason: Cough predniSONE 20 mg TAB [Deltasone 20 MG TAB*] 40 mg PO DAILY #10 tab Patient Education Materials: Viral Syndrome (ED) Referrals: Raciel Bartholomew MD [Primary Care Provider] - If Needed Additional Instructions: YOUR PRESENTATION IS CONSISTENT WITH A VIRAL FLU-LIKE ILLNESS. NO INDICATION FOR ANTIBIOTICS AT PRESENT. REST, HYDRATE, OTC MEDS NEEDED. WILL TREAT WITH PREDNISONE TO HELP WITH AIRWAY INFLAMMATION AND COUGH MEDICINE. SEEK FOLLOW-UP IF YOU ARE NOT IMPROVING OVER THE NEXT 1-2 WEEKS. USE OTC AFRIN FOR NASAL CONGESTION IF NEEDED. 2 SPRAYS IN EACH NOSTRIL TWICE DAILY NEEDED. DO NOT USE FOR MORE THAN 3-4 DAYS IN A ROW TO PREVENT DEVELOPING REBOUND CONGESTION. - Billing Disposition and Condition Condition: STABLE Disposition: Home
== END 2019-10-30 15:05 | disposition home or self-care (01) ==
LOC: UCEAST 13:57
DX: R05 Cough (principal); R09.81 Nasal congestion; J02.9 Acute pharyngitis, unspecified; R51 Headache; M79.10 Myalgia, unspecified site; J45.909 Unspecified asthma, uncomplicated; Z88.6 Allergy status to analgesic agent; Z91.030 Bee allergy status; Z88.1 Allergy status to other antibiotic agents; Z88.8 Allergy status to other drugs, medicaments and biological substances; Z88.5 Allergy status to narcotic agent; Z91.09 Other allergy status, other than to drugs and biological substances; Z91.040 Latex allergy status; Z88.0 Allergy status to penicillin; Z91.018 Allergy to other foods; Z91.013 Allergy to seafood
CPT/HCPCS: 99212; G0463

== ENCOUNTER 2020-06-29 12:33 | Observation (INO) ==
[2020-06-29] MEDS ORDERED: NS 0.9% 1000 ml BAG 1,000 ML IV ONE (12:34)
[2020-06-29] MEDS ORDERED: EPINEPHrine,Rac 2.25% NEB.SOL 0.5 ML INH ONE ×3 (12:54→22:51)
[2020-06-29 12:57] LABS: ABS Eosinophils 0.1 10^3/ul (0-0.6); ABS Monocytes 0.5 10^3/ul (0-0.8); ABS Neutrophils 3.7 10^3/ul (1.5-7.7); Eosinophil % 0.8 %; Hematocrit 41 % (35-47); Hemoglobin 13.8 g/dL (12.0-16.0); Lymphocyte % 41.4 %; Mean Corpuscular HGB Conc 33 g/dL (31-36); Mean Corpuscular Hemoglobin 28 pg (27-31); Mean Corpuscular Volume 85 fL (80-97); Mean Platelet Volume 7.8 fL (7.4-10.4); Platelet Count 362 10^3/uL (150-450); Red Blood Count 4.89 10^6 /uL (3.70-4.87); Red Cell Distribution Width 16 % (10-15); White Blood Count 7.2 10^3/uL (3.5-10.8)
[2020-06-29 13:13] LABS: Albumin 3.8 g/dL (3.2-5.2); Albumin/Globulin Ratio 1.5 (1-3); BUN/Creatinine Ratio 12.2 (8-20); C Reactive Protein 5.46 mg/L (<8.01); Calcium 8.7 mg/dL (8.6-10.3); EGFR African American 90.4 (>60); EGFR Non-African American 74.7 (>60); Globulin 2.5 g/dL (2-4); Potassium 3.1 mmol/L (3.5-5.0); Total Bilirubin 0.5 mg/dL (0.2-1.0); Total Protein 6.3 g/dL (6.4-8.9)
[2020-06-29] MEDS ORDERED: Potassium Chlor 20 meq TAB.ER PO ONE (13:56)
[2020-06-29] MEDS ORDERED: Albuterol/Ipratropium NEB.SOL (2.5/0.5 MG) 3 ML NEB.SOLN INH PRN (16:05)
[2020-06-29] MEDS ORDERED: diPHENhydraMINE 25 mg TAB PO PRN (16:26)
[2020-06-29 16:35] LABS: Magnesium 1.7 mg/dL (1.9-2.7)
[2020-06-29] MEDS ORDERED: diPHENhydraMINE 25 mg TAB PO SCH (17:00)
[2020-06-29] MEDS: methylPREDNISolone SOD 40 mg/ml 1 ml VIAL IV SCH (18:46)
[2020-06-29] MEDS: Heparin 5000 UNITS/ML 1 mL VIAL SUBCUT SCH (20:55)
[2020-06-29] MEDS: Famotidine IV 10 MG/ML 2 ml VIAL (20 mg) IV SLOW PU SCH (23:00)
[2020-06-30] MEDS: methylPREDNISolone SOD 40 mg/ml 1 ml VIAL IV SCH ×2 (02:44→08:45)
[2020-06-30] MEDS: Heparin 5000 UNITS/ML 1 mL VIAL SUBCUT SCH (05:34)
[2020-06-30 07:10] LABS: ABS Lymphocytes 1.4 10^3/ul (1.0-4.8); ABS Monocytes 0.2 10^3/ul (0-0.8); ABS Neutrophils 16.7 10^3/ul (1.5-7.7); Hematocrit 41 % (35-47); Lymphocyte % 7.6 %; Mean Corpuscular HGB Conc 34 g/dL (31-36); Mean Corpuscular Hemoglobin 29 pg (27-31); Mean Corpuscular Volume 84 fL (80-97); Mean Platelet Volume 8.2 fL (7.4-10.4); Platelet Count 378 10^3/uL (150-450); Red Cell Distribution Width 15 % (10-15); White Blood Count 18.3 10^3/uL (3.5-10.8)
[2020-06-30 07:24] LABS: BUN/Creatinine Ratio 12.8 (8-20); EGFR African American 95.8 (>60); EGFR Non-African American 79.2 (>60)
[2020-06-30 08:00] VITALS: BP 125/70
[2020-06-30] MEDS: Famotidine IV 10 MG/ML 2 ml VIAL (20 mg) IV SLOW PU SCH (08:45)
== END 2020-06-30 10:51 | disposition home or self-care (01) ==
LOC: MEDTELE 12:33 → ED 12:33
PROVIDERS: ADMIT Registered Nurse; ATTEND Student in an Organized Health Care Education/Training Program